=== PATIENT | male | born 1980 | race American Indian/Alaskan Native ===

== ENCOUNTER 2016-04-26 22:09 | Emergency (ER) | payer SELFPAY ==
--- NOTE | 2016-04-27 02:42 | Emergency Department Report ---
HPI - General Chief Complaint: Extremity Injury, Lower Time Seen by Provider: 04/27/16 02:40 - HPI HPI: Patient is a 35-year-old male presents to ED complaining of left ankle swelling and pain intensity. Patient states he was at work, working on a car when the car slid in his foot got stuck in between the tire and as he tried to catch himself he fell and hit his head. Patient denies loss of consciousness patient was able to get up after the incident with some difficulty. Patient states pain and swelling began several hours after incident. Patient denies fevers/chills/nausea/vomiting/loss of sensation/headache/ shortness of breath/chest pain/dizziness ED Past Medical Hx - Past Medical History Previous Medical History?: No - Surgical History Past Surgical History?: No - Social History Smoking Status: Current Every Day Smoker Substance Use Type: None - Medications Home Medications: Home Medications Medication Instructions Recorded Confirmed Last Taken Type HYDROcodone/APAP 5-325 [Katy 2 each PO Q6H #24 tablet 04/27/16 Unknown Rx 5-325 mg TAB] Ibuprofen [Motrin] 800 mg PO Q8HR PRN #40 tablet 04/27/16 Unknown Rx methOCARBAMOL [Robaxin TAB] 500 mg PO BID #30 tablet 04/27/16 Unknown Rx ED Review of Systems ROS: Stated complaint: HEAD INJURY, LT ANKLE PAIN Other details as noted in HPI Constitutional: denies: chills, fever Eyes: denies: eye pain, eye discharge, vision change ENT: denies: ear pain, throat pain, dental pain, hearing loss, epistaxis, congestion Respiratory: denies: cough, shortness of breath, wheezing Cardiovascular: denies: chest pain, palpitations Endocrine: no symptoms reported Gastrointestinal: denies: abdominal pain, nausea, vomiting, diarrhea Genitourinary: denies: urgency, dysuria, frequency, hematuria, testicular pain, testicular mass Musculoskeletal: denies: back pain, joint swelling, arthralgia Skin: denies: rash, lesions Neurological: denies: headache, weakness, numbness, paresthesias, confusion Psychiatric: denies: anxiety, depression Hematological/Lymphatic: denies: easy bleeding, easy bruising Physical Exam - Physical Exam Vital Signs: Vital Signs 04/27/16 00:51 Temperature 99.2 F Pulse Rate 107 H Respiratory 18 Rate Blood Pressure 137/88 [Right] O2 Sat by Pulse 98 Oximetry Physical Exam: GENERAL: Alert and oriented x3, no apparent distress, Normal Gait, atraumatic. HEAD: Head is normocephalic and a-traumatic. EYES: Extra ocular muscles are intact. Pupils are equal, round, and reactive to light and accommodation. EARS: symetrical, atraumatic, gross auditory nml bilaterally. NOSE: Nose symetrical, Nontender,Nares appeared normal. MOUTH:Mouth is well hydrated and without lesions. Patent airways. NECK: Supple. Non edematous, No carotid bruits. No lymphadenopathy or thyromegaly. LUNGS: Symetrical with respiration, No wheezing, no rales or crackles, CTAB. HEART: S1, S2 present, regular rate and rhythm without murmur, no rubs, no gallops. ABDOMEN: No organomegaly was noted,Positive bowel sounds, soft, and non- distended. . Nontender to palpation on all Quadrants, NO CVA tenderness. EXTREMITIES/MUSCULOSKELETAL: No cyanosis, clubbing, rash, lesions or edema. LE Pulses 2+ bilaterally. Left ankle swelling and tender to palpation. Patient able to dorsi flex his left foot with some pain. Limited range of movement of the left foot. NEUROLOGIC: No focal Deficit, Cranial nerves II through XII are grossly intact. No loss of sensation PSYCHIATRIC: Mood is congruent with affect, denies suicidal or homicidal ideations. SKIN: Warm and dry, No lesions, No ulceration or induration present. ED Course Vital Signs 04/27/16 00:51 Temperature 99.2 F Pulse Rate 107 H Respiratory 18 Rate Blood Pressure 137/88 [Right] O2 Sat by Pulse 98 Oximetry ED Medical Decision Making - Radiology Data Radiology results: report reviewed, image reviewed interpreted by me: FINAL REPORT PROCEDURE: XR ANKLE 2V LT TECHNIQUE: LEFT ankle radiographs, AP, lateral, and oblique views. CPT 44085 HISTORY: INJURY to lt ankle COMPARISON: No prior studies are available for comparison. FINDINGS: Fracture (s) and/or Dislocation(s): There is an oblique impacted fracture through the distal fibula. Fracture of the distal posterior tibia is noted. There is widening of the ankle mortise.. Alignment: Normal. Joint space(s): Widening of the ankle mortise.. Soft tissues: Moderate soft tissue swelling diffusely. Bone mineralization: Normal. Foreign bodies: None. Calcaneal spurring: None. IMPRESSION: Oblique impacted fracture of the distal fibula. There is a fracture of the distal posterior tibia. Moderate widening of the ankle mortise globally. There is associated soft tissue swelling.. Transcribed By: [facility] Dictated By: RICHIE GUSTAFSON MD Electronically Authenticated By: RICHIE GUSTAFSON MD Signed Date/Time: 04/27/16 0405 - Medical Decision Making 35-year-old male presents with tibia fibular fracture. ED course: Pt received 2 tablets of Katy. Patient also received [address] of head: Report shows no acute bleeding of the lumbar spaces are normal fast which are normal no evidence of acute intracranial process. Left ankle x-ray: Nondisplaced Oblique impacted fracture through the distal fibula, fracture of the distal posterior tibia And widening of the ankle mortise. No dislocation. see above Discussed findings with patient. Discussed the patient knee for follow-up with orthopedic doctor in 3-5 days. Patient to be placed in posterior long splint with stir up and crutches. The patient verbally states he understands and will follow-up with the orthopedic doctor as referred. Vital signs are stable. Patient is in no acute respiratory distress. Critical care attestation.: If time is entered above; I have spent that time in minutes in the direct care of this critically ill patient, excluding procedure time. ED Disposition Clinical Impression: Nondisplaced fracture of distal end of left fibula Qualifiers: Encounter type: initial encounter Qualified Code(s): S82.832A - Other fracture of upper and lower end of left fibula, initial encounter for closed fracture Fracture of distal end of left tibia Qualifiers: Encounter type: initial encounter Fracture type: closed Fracture morphology: other fracture Qualified Code(s): S82.392A - Other fracture of lower end of left tibia, initial encounter for closed fracture Disposition: DISCHARGED TO HOME OR SELFCARE Is pt being admited?: No Does the pt Need Aspirin: No Condition: Stable Instructions: Ankle Fracture (ED), Leg Fracture (ED), Crutch Instructions (ED) , Splint Care (ED), RICE Therapy (ED) Prescriptions: HYDROcodone/APAP 5-325 [Katy 5-325 mg TAB] 2 each PO Q6H #24 tablet Ibuprofen [Motrin] 800 mg PO Q8HR PRN #40 tablet PRN Reason: Pain methOCARBAMOL [Robaxin TAB] 500 mg PO BID #30 tablet Referrals: PRIMARY CARE, [Primary Care Provider] - 3-5 Days ROXI PORRAS MD [Staff Physician] - 3-5 Days NURIA ESPINO MD [Staff Physician] - 3-5 Days RONNY MONTES MD [Staff Physician] - 3-5 Days FREDA COX MD [Staff Physician] - 3-5 Days RONNY CARDENAS DPM [Staff Physician] - 3-5 Days Forms: Accompanied Note, Work/School Release Form(ED) Time of Disposition: 04:34
--- NOTE | 2016-04-27 03:08 | XRay Report ---
FINAL REPORT PROCEDURE: XR ANKLE 2V LT TECHNIQUE: LEFT ankle radiographs, AP, lateral, and oblique views. CPT 04146 HISTORY: INJURY to lt ankle COMPARISON: No prior studies are available for comparison. FINDINGS: Fracture (s) and/or Dislocation(s): There is an oblique impacted fracture through the distal fibula. Fracture of the distal posterior tibia is noted. There is widening of the ankle mortise.. Alignment: Normal. Joint space(s): Widening of the ankle mortise.. Soft tissues: Moderate soft tissue swelling diffusely. Bone mineralization: Normal. Foreign bodies: None. Calcaneal spurring: None. IMPRESSION: Oblique impacted fracture of the distal fibula. There is a fracture of the distal posterior tibia. Moderate widening of the ankle mortise globally. There is associated soft tissue swelling..
--- NOTE | 2016-04-27 03:20 | Cat Scan Report ---
FINAL REPORT PROCEDURE: CT HEAD/BRAIN WO CON TECHNIQUE: Computerized tomography of the head was performed without contrast material. HISTORY: HEAD INJURY COMPARISON: No prior studies are available for comparison. FINDINGS: Skull and scalp: Normal. Paranasal sinuses: Normal. Ventricles and subarachnoid spaces: Normal. Cerebrum: No evidence of hemorrhage, acute infarction or mass . Cerebellum and brainstem: No evidence of hemorrhage, acute infarction or mass. Vasculature: Normal. Comments: None. IMPRESSION: There is no evidence of an acute intracranial process
[2016-04-27] MEDS ORDERED: NORCO 5/325 PO ONE (03:32)
[2016-04-27 05:00] VITALS: BP 132/79
[2016-04-27] MEDS ORDERED: FLEXERIL ONE (05:39)
[2016-04-27] MEDS ORDERED: FLEXERIL PO ONE (05:45)
== END 2016-04-27 07:09 | disposition home or self-care (01) ==
LOC: ED 22:09
DX: S82.832A Other fracture of upper and lower end of left fibula, initial encounter for closed fracture (principal); S82.392A Other fracture of lower end of left tibia, initial encounter for closed fracture; F17.200 Nicotine dependence, unspecified, uncomplicated; W18.09XA Striking against other object with subsequent fall, initial encounter; Y93.9 Activity, unspecified; Y99.9 Unspecified external cause status; Y92.89 Other specified places as the place of occurrence of the external cause
CPT/HCPCS: 70450